=== PATIENT | female | born 1975 | race American Indian/Alaskan Native ===

== ENCOUNTER 2017-06-21 22:36 | Emergency (ER) | payer SELFPAY ==
[2017-06-21 22:57] VITALS: BP 142/92; PULSE 87; RESP 16; TEMP 97.6; O2SAT 99
[2017-06-21] MEDS ORDERED: Sodium Chloride 0.9% 1,000 ML IV STA (22:58)
--- NOTE | 2017-06-21 23:28 | ED PDOC ---
Syncope/Near Syncope/Dizziness Time Seen by Provider: 06/21/17 22:58 Chief Complaint (Nursing): Dizziness/Lightheaded History Per: Patient History/Exam Limitations: no limitations Onset/Duration Of Symptoms: Hrs (2) Current Symptoms Are (Timing): Still Present Fall Associated With With Symptoms: No Severity: Moderate Additional History Per: Patient Additional Complaint(s): 41 y/o female with known history of HIV complaining of dizziness, nausea , and >20 episodes of vomiting in the last two hours with sudden onset while cooking. Dizziness is described as room spinning, and worse with movement. Emesis is billious but non bloody. There are no other complaints at this time. Past Medical History Vital Signs: Last Vital Signs Temp 97.6 F 06/21/17 22:54 Pulse 87 06/21/17 22:54 Resp 16 06/21/17 22:54 BP 142/92 H 06/21/17 22:54 Pulse Ox 99 06/21/17 22:54 - Medical History PMH: HIV - Surgical History Surgical History: - Family History Family History: States: Unknown Family Hx - Social History Current smoker - smoking cessation education provided: No Ex-Smoker (has not smoked in the last 12 months): No Alcohol: None Drugs: Denies - Home Medications Home Medications: Ambulatory Orders Medication Instructions Recorded Meclizine [Antivert] 25 mg PO Q6 PRN #24 tab 06/22/17 - Allergies Allergies/Adverse Reactions: Allergies Allergy/AdvReac Type Severity Reaction Status Date / Time No Known Allergies Allergy Verified 06/21/17 22:54 Review of Systems ROS Statement: Except As Marked, All Systems Reviewed And Found Negative Gastrointestinal: Positive for: Nausea, Vomiting Neurological: Positive for: Dizziness Physical Exam - Reviewed Nursing Documentation Reviewed: Yes Vital Signs Reviewed: Yes - Physical Exam Appears: Positive for: Well, Non-toxic, No Acute Distress Head Exam: Positive for: ATRAUMATIC, NORMAL INSPECTION, NORMOCEPHALIC Skin: Positive for: Normal Color, Warm, DRY Eye Exam: Positive for: Normal appearance, EOMI, PERRL, Nystagmus (horizontal) ENT: Positive for: Other (dry mucus membranes) Neck: Positive for: Normal, Painless ROM Cardiovascular/Chest: Positive for: Regular Rate, Rhythm Respiratory: Positive for: CNT, Normal Breath Sounds Gastrointestinal/Abdominal: Positive for: Normal Exam, Bowel Sounds, Soft Back: Positive for: Normal Inspection Extremity: Positive for: Normal ROM Neurologic/Psych: Positive for: Alert, Oriented - Laboratory Results Result Diagrams: 06/21/17 23:45 06/21/17 23:45 - ECG O2 Sat by Pulse Oximetry: 99 (RA) Pulse Ox Interpretation: Normal Medical Decision Making Medical Decision Making: Impression: Vertiginous dizziness in the setting of HIV Plan: - CT Head - Labs - IVF, Zofran, Promethazine, and Benadryl - EKG [facility] Final Radiology Report Call: [phone] assistance Online chat: [email or web address] Patient Name: BRAYDON GOLDMAN (Age): 1975 41 Gender: F Date of Exam: 06/21/2017 Referring Physician: Louis Bales # of Images: [id number] Ordered As: CT HEAD W O CONTRAST CONFIDENTIALITY STATEMENT This report is intended only for use by the referring physician, and only in accordance with law. If you received this in error, call [phone]. Page 1 of 1 EXAM: CT Head Without Intravenous Contrast CLINICAL HISTORY: 41 years old, female; Signs and symptoms; Dizziness TECHNIQUE: Axial computed tomography images of the head/brain without intravenous contrast. All CT scans at this facility use one or more dose reduction techniques, viz.: automated exposure control; ma/kV adjustment per patient size (including targeted exams where dose is matched to indication; i.e. head); or iterative reconstruction technique. Coronal and sagittal reformatted images were created and reviewed. COMPARISON: No relevant prior studies available. FINDINGS: Brain: No intracranial hemorrhage. No mass. No definite edema. Ventricles: No hydrocephalus. Cavum septum pellucidum and vergae. Bones/joints: No acute fracture. Soft tissues: Unremarkable. Sinuses: No acute sinusitis. Mastoid air cells: Minimal partial opacification of LEFT mastoid. Orbits: Unremarkable as visualized. IMPRESSION: 1. No acute intracranial abnormality. 2. Incidental/non-acute findings are described above. Thank you for allowing us to participate in the care of your patient. Dictated and Authenticated by: Destin Milligan MD 06/22/2017 12:47 AM Eastern Time ([place] & [place]) 01:00: On reevaluation the patient reports significant reduction in symptoms, but complains of feeling slightly dizzy. She was given Antivert. Results reviewed with patient and all questions answered. Scribe Attestation: Documented by Keisha Khalil, acting as a scribe for Louis Bales MD Provider Scribe Attestation: All medical record entries made by the Scribe were at my direction and personally dictated by me. I have reviewed the chart and agree that the record accurately reflects my personal performance of the history, physical exam, medical decision making, and the department course for this patient. I have also personally directed, reviewed, and agree with the discharge instructions and disposition. Disposition - Clinical Impression Clinical Impression: Vertigo - Patient ED Disposition Is Patient to be Admitted: No Doctor Will See Patient In The: Office Counseled Patient/Family Regarding: Studies Performed, Diagnosis, Need For Followup - Disposition Disposition: Routine/Home Disposition Time: 01:00 Condition: STABLE Prescriptions: Meclizine [Antivert] 25 mg PO Q6 PRN #24 tab PRN Reason: Dizziness Instructions: Vertigo (ED) Forms: [employer] (Albanian)
[2017-06-21 23:48] LABS: BASO % 0.4 % (0.0-2.0); EOS % 0.7 % (0.0-4.0); HEMATOCRIT 37.5 % (34.0-47.0); LYMPH # 1.6 K/uL (1.0-4.3); LYMPH % 28.6 % (20.0-40.0); MEAN CELL VOLUME 103.3 fl (81.0-99.0); MEAN CORPUSCULAR HEMOGLOBIN 34.1 pg (27.0-31.0); MEAN PLATELET VOLUME 9.5 fl (7.2-11.7); MONO # 0.3 K/uL (0.0-0.8); MONO % 5.9 % (0.0-10.0); NEUT # 3.5 K/uL (1.8-7.0); NEUT % 64.4 % (50.0-75.0); NRBC % 0.1 % (0.0-0.0); WHITE BLOOD COUNT 5.5 K/uL (4.8-10.8)
[2017-06-21 23:58] LABS: ALB/GLOB RATIO 1.2 (1.0-2.1); ALKALINE PHOSPHATASE 37 U/L (38-126); ALT/SGPT 27 U/L (9-52); AST/SGOT 26 U/L (14-36); BILIRUBIN,TOTAL 0.3 mg/dl (0.2-1.3); BLOOD UREA NITROGEN 13 mg/dl (7-17); CALCIUM 8.5 mg/dL (8.4-10.2); CARBON DIOXIDE 21 mmol/L (22-30); CHLORIDE 109 mmol/L (98-107); GFR AFRICAN-AMERICAN > 60; GLUCOSE,RANDOM 106 mg/dL (65-105); POTASSIUM 3.9 MMOL/L (3.6-5.0); SODIUM 141 mmol/l (132-148)
[2017-06-22 00:13] LABS: RBC URINE 4 /hpf (0-3); URINE BILIRUBIN NEGATIVE (NEGATIVE); URINE BLOOD MODERATE (NEGATIVE); URINE COLOR YELLOW (YELLOW); URINE GLUCOSE (UA) NEG (Normal); URINE KETONE NEGATIVE (NEGATIVE); URINE LEUKOCYTE ESTERASE NEG Leu/uL (Negative); URINE PROTEIN NEGATIVE (NEGATIVE); URINE UROBILINOGEN 0.2-1.0 mg/dL (0.2-1.0); WBC URINE 4 /hpf (0-5)
[2017-06-22] MEDS ORDERED: DiphenhydrAMINE 50 mg/ml Inj IV STA (00:46)
--- NOTE | 2017-06-22 00:47 | CT ---
EXAM: CT Head Without Intravenous Contrast CLINICAL HISTORY: 41 years old, female; Signs and symptoms; Dizziness TECHNIQUE: Axial computed tomography images of the head/brain without intravenous contrast. All CT scans at this facility use one or more dose reduction techniques, viz.: automated exposure control; ma/kV adjustment per patient size (including targeted exams where dose is matched to indication; i.e. head); or iterative reconstruction technique. Coronal and sagittal reformatted images were created and reviewed. COMPARISON: No relevant prior studies available. FINDINGS: Brain: No intracranial hemorrhage. No mass. No definite edema. Ventricles: No hydrocephalus. Cavum septum pellucidum and vergae. Bones/joints: No acute fracture. Soft tissues: Unremarkable. Sinuses: No acute sinusitis. Mastoid air cells: Minimal partial opacification of LEFT mastoid. Orbits: Unremarkable as visualized. IMPRESSION: 1. No acute intracranial abnormality. 2. Incidental/non-acute findings are described above.
[2017-06-22] MEDS ORDERED: Promethazine 25MG/50ML NS IVPB STA (00:59)
[2017-06-22] MEDS ORDERED: Promethazine 25MG/50ML NS IVPB ONE (01:00)
== END 2017-06-22 02:07 | disposition home or self-care (01) ==
LOC: H.ER 22:36
DX: R42 Dizziness and giddiness (principal); B20 Human immunodeficiency virus [HIV] disease
CPT/HCPCS: 70450; 80053; 81003; 81025; 82948; 85025; 99284; J1200; J2405; J2550; J7040